=== PATIENT | male | born 1955 | race Caucasian/White ===

== ENCOUNTER → 2016-12-14 | Outpatient (CLI) | payer OTHER ==
[~2016-12-14] MED LIST: APR25 PO; ASPI81TA28 PO; CALC-20 PO; FIBER PO; LSN20 PO; METO50TA16 PO; MULT-506 PO; OMEGCAP2 PO; PRLSR20 PO
[2016-12-14 11:06] LABS: BASO % 0.3 %; BASO ABS # 0.02 K/uL (0-0.2); COMPLETE YES; EOS % 2.6 %; HEMATOCRIT 53.3 % (42-52); IG% 0.2 %; LYMPH % 13.5 %; LYMPH ABS # 0.88 K/uL (1.2-3.4); MEAN CELL VOLUME 96.7 fL (80-100); MEAN CORPUSCULAR HEMOGLOBIN 34.5 pg (25-34); MEAN CORPUSCULAR HGB CONC 35.6 g/dl (32-36); MEAN PLATELET VOLUME 9.6 fL (7.4-10.4); MONO % 17.4 %; PLATELET COUNT 215 K/uL (130-400); RED BLOOD COUNT 5.51 M/uL (4.7-6.1)
[2016-12-14 11:41] LABS: ALT/SGPT 31 U/L (12-78); BLOOD UREA NITROGEN 10 mg/dl (7-18); BUN/CREATININE RATIO 12.3 (10-20); CALCIUM 8.8 mg/dl (8.5-10.1); CARBON DIOXIDE 26 mmol/L (21-32); CHLORIDE 104 mmol/L (98-107); CHOLESTEROL 170 mg/dl (0-200); CREATININE 0.77 mg/dl (0.60-1.40); GLUCOSE 90 mg/dl (70-99); POTASSIUM 4.4 mmol/L (3.5-5.1); SODIUM 135 mmol/L (136-145)
[2016-12-14 11:48] LABS: ALB/GLOB RATIO 0.9 (0.9-2); ALKALINE PHOSPHATASE 54 U/L (45-117); AST/SGOT 27 U/L (15-37); HDL CHOLESTEROL 85 mg/dl; LDL CHOLESTEROL CALCULATED 75 mg/dl; PROSTATE SPECIFIC ANTIGEN 0.874 ng/ml (0.000-4.000); TRIGLYCERIDES 50 mg/dl (0-150); VERY LOW DENSITY LIPOPROT CALC 10 mg/dl
== END | disposition home or self-care (01) ==
LOC: C.LAB 10:09
PROVIDERS: ATTEND Internal Medicine
DX: E87.1 Hypo-osmolality and hyponatremia (principal); Z12.5 Encounter for screening for malignant neoplasm of prostate; D75.1 Secondary polycythemia; I10 Essential (primary) hypertension

== ENCOUNTER 2017-06-02 14:24 | Emergency (ER) | payer OTHER ==
[~2017-06-02] VITALS: Ht 190.5 cm; Wt 87.8 kg
[2017-06-02 14:43] VITALS: TEMP 36.7; Ht 190.5 cm; Wt 87.8 kg
[2017-06-02] MEDS ORDERED: LIDOCAINE/EPINEPHRINE 1% 20 ML VIAL INFIL STA (14:59)
--- NOTE | 2017-06-02 16:23 | EMERGENCY ROOM VISIT NOTE ---
ED Visit Note First contact with patient: 14:46 Chief Complaint: "Cut left forearm". History of Present Illness: This patient is a 61-year-old male who presents to the Emergency Department via private vehicle for evaluation of their left ventral forearm laceration. Patient sustained the laceration while at work when a frame fell on his left forearm. They report a moderate amount of bleeding initially. They deny any numbness or tingling into the distal extremity. Patient rates his current discomfort as a 2/10. Patient's Tetanus status is believed to be currently up-to-date. Medications: As noted below Allergies: As noted below PMH: No pertinent SHx: Patient is employed and lives locally. ROS: All pertinent positive and negative review of systems are appropriately documented in the History of Present Illness. Physical Exam: VITAL SIGNS - Vital signs and nursing notes were reviewed. Hypertensive. GENERAL -61-year-old male appearing his stated age who is in no acute distress. Communicates well with provider and answers questions appropriately. SKIN - There is a 11 cm cm long laceration noted on the patient's left ventral forearm, mid shaft that is T-shaped in nature. The edges gape apart with traction. No foreign bodies appreciated. Upon further examination there are no deep structures including vessel, tendon, or bony structures appreciated. There is no active bleeding noted. MUSCULOSKELETAL -full range of motion of the left forearm. NEUROLOGIC - Spinothalamic tract was found to be intact with ability to discriminate sharp versus dull sensation. No sensory defects of the dorsal column were appreciated utilizing light touch for evaluation. VASCULAR - Capillary refill was brisk. ED Course: Patient was seen and evaluated by myself. Risks and benefits of performing primary wound closure versus no repair were discussed with the patient who verbalizes understanding. Verbal consent was obtained prior to performing the procedure. 15 cc of 1% buffered lidocaine was used to anesthetize the left forearm laceration. The wound was cleansed and prepped in the typical sterile fashion utilizing normal saline and Betadine. The wound was sterilely draped. Once proper anesthetization was established, the wound was further examined and demonstrated no deep involvement. The wound was copiously irrigated with normal saline and Betadine. The wound was closed using 17 simple, 5-0 nylon sutures with the wound edges being well approximated. Patient tolerated the procedure well. No complications were met. The wound was cleansed and dressed with a Bacitracin dressing. He is to follow with the approved Worker's Compensation. Patient educated on worrisome symptoms for return visit to the Emergency Department. Patient discharged to home in good condition. Problem List Medical Problems: (1) High blood pressure Status: Chronic (2) History of orthopedic surgery Status: Resolved (3) Hyponatremia Status: Resolved Current/Historical Medications Scheduled Aspirin (Aspirin Ec), 81 MG PO DAILY Calcium Carbonate-Vitamin D (Calcium 600 + D), 1 TAB PO QPM Fiber Laxative (Fiber Laxative), 1 DOSE PO DAILY Hydralazine Hcl (Apresoline), 25 MG PO QID Lisinopril (Lisinopril), 20 MG PO BID Metoprolol Tartrate (Lopressor) (Lopressor), 25 MG PO BID Multivitamin (Multivitamin), 1 TAB PO QPM Lenore-3 Fatty Acids (Fish Oil), 1 CAP PO QPM Omeprazole (Prilosec Otc *), 20 MG PO DAILY Allergies Coded Allergies: Penicillins (Verified Allergy, Severe, RASH, 04/14/14) BEE STING (Verified Allergy, Intermediate, SWELLING, 12/20/15) Codeine (Verified Allergy, Intermediate, NAUSEA, 04/14/14) Vital Signs Date Time Temp Pulse Resp B/P (MAP) Pulse Ox O2 Delivery O2 Flow Rate FiO2 06/02/17 14:43 36.7 62 18 200/95 99 Room Air Medications Administered Medications (Trade) Dose Ordered Sig/Brittani Route Start Time Stop Time Status Last Admin Dose Admin Lidocaine/ Epinephrine (Xylocaine/Epine 1% Inj) 20 ml ONE STAT INFIL 06/02/17 14:59 06/02/17 15:00 DC 06/02/17 15:16 20 ML Departure Information Impression Primary Impression: Laceration Dispostion Home / Self-Care Condition GOOD Referrals Pro,Karl Frankel M.D. (PCP) Patient Instructions My [facility] Additional Instructions Discharge Instructions: You have received 18 sutures on your wrist. These sutures are NOT dissolvable and WILL need to be removed by a health care provider in 14 days. You can return to the Emergency Department or contact your Primary Care Provider to have the sutures removed. Proper wound care is essential for adequate wound healing and infection prevention. You can shower and clean the wound with soap and water. Do not scour over the wound, pat dry with a towel. Do not submerse the wound (i.e. bathe or dish wash) until the sutures have been removed. You can use an antibiotic ointment with a dressing over the wound for the next 3-4 days. After this time you may leave the wound dry and open to the air. If crust develops over the wound you can use a Q-tip to apply a 1:1 peroxide:water solution to clean the wound. Look for signs of infection of the wound including: increased pain, swelling, foul discharge, streaking, or increased temperature. If any of these are noticed you should return to the Emergency Department for further assessment and treatment. As with any laceration you may have received nerve damage to the surrounding tissues. This damage may or may not be permanent. You should keep the area covered with sunscreen for the first 6 months to 1 year when at risk for exposure to help minimize scarring. You can also use scar reducing creams or Vitamin E oil to help minimize scarring. For pain control, you can use the following [id number] medicines: - Regular strength (325mg/tab) Tylenol (acetaminophen) 2 tabs every 4-6 hours as needed. Do not exceed 12 tablets in a 24 hour period. Avoid taking more than 3 grams (3000 mg) of Tylenol per day. This includes any other sources of acetaminophen you may take on a regular basis. - Regular strength (200 mg/tab) Advil (ibuprofen) 1-2 tabs every 4-6 hours as needed. Do not exceed a dose of 3200 mg per day. Return to the emergency department if your symptoms worsen despite treatment course outlined above.
[2017-06-02 16:37] VITALS: BP 199/104; PULSE 68; O2SAT 99
== END 2017-06-02 16:40 | disposition home or self-care (01) ==
LOC: C.EDB 14:25 → C.EDD 16:40
DX: S51.812A Laceration without foreign body of left forearm, initial encounter (principal); W22.8XXA Striking against or struck by other objects, initial encounter; Y92.89 Other specified places as the place of occurrence of the external cause; Y99.0 Civilian activity done for income or pay; I10 Essential (primary) hypertension; Z79.82 Long term (current) use of aspirin; Z79.899 Other long term (current) drug therapy